=== PATIENT | female | born 1970 | race Native Hawaiian/Other Pacific Islander ===

== ENCOUNTER 2017-08-29 14:50 | Outpatient (CLI) | payer BC | END 2017-08-29 19:38 | disposition home or self-care (01) | LOC: MRI 14:50 | DX: M54.17 Radiculopathy, lumbosacral region (principal) | CPT/HCPCS: A9576 ==

== ENCOUNTER 2018-08-14 09:55 | Outpatient (CLI) | payer BC | END 2018-08-14 19:55 | disposition home or self-care (01) | LOC: MRI 09:55 | DX: M54.12 Radiculopathy, cervical region (principal); M54.6 Pain in thoracic spine ==

== ENCOUNTER 2020-07-12 12:32 | Outpatient (CLI) | payer OTHER | END 2020-07-12 19:13 | disposition home or self-care (01) | LOC: RAD 12:32 | DX: Z01.818 Encounter for other preprocedural examination (principal) ==

== ENCOUNTER 2021-05-23 11:14 | Outpatient (CLI) | payer OTHER | END 2021-05-23 21:47 | disposition home or self-care (01) | LOC: MAMMO 11:14 | PROVIDERS: ATTEND Registered Nurse | DX: Z12.31 Encounter for screening mammogram for malignant neoplasm of breast (principal) ==

== ENCOUNTER 2021-06-02 15:21 | Outpatient (CLI) | payer OTHER | END 2021-06-02 22:19 | disposition home or self-care (01) | LOC: US 15:21 | PROVIDERS: ATTEND Registered Nurse | DX: N63.20 Unspecified lump in the left breast, unspecified quadrant (principal) ==

== ENCOUNTER 2021-07-25 17:14 | Outpatient (CLI) | payer OTHER | END 2021-07-25 19:15 | disposition home or self-care (01) | LOC: RAD 17:14 | PROVIDERS: ATTEND Registered Nurse | DX: E55.9 Vitamin D deficiency, unspecified (principal); Z79.890 Hormone replacement therapy ==

== ENCOUNTER 2021-08-12 13:36 | Outpatient (CLI) | payer OTHER | END 2021-08-12 20:51 | disposition home or self-care (01) | LOC: RESP 13:36 | PROVIDERS: ATTEND Internal Medicine Cardiovascular Disease | DX: I10 Essential (primary) hypertension (principal) ==